=== PATIENT | female | born 1990 | race Caucasian/White ===

== ENCOUNTER 2021-06-08 08:19 | Emergency (ER) | payer BC, OTHER ==
[~2021-06-08] VITALS: Ht 154.9 cm; Wt 89.1 kg
[2021-06-08 08:31] VITALS: BP 144/101
--- NOTE | 2021-06-08 09:00 | NUR ---
assumed care of patient. ED PA TO ASSESS PATIENT AND PERFORM RAPID STREP SCREEN
== END 2021-06-08 09:50 | disposition home or self-care (01) ==
LOC: ED 08:59
DX: J02.9 Acute pharyngitis, unspecified (principal)
CPT/HCPCS: 87081; 87880; 99283